=== PATIENT | male | born 1995 | race Caucasian/White ===

== ENCOUNTER 2016-10-16 11:20 | Emergency (ER) | END 2016-10-16 12:59 | disposition home or self-care (01) | DX: G51.0 Bell's palsy (principal); J45.909 Unspecified asthma, uncomplicated; Z76.0 Encounter for issue of repeat prescription ==

== ENCOUNTER 2017-01-05 11:24 | Emergency (ER) | payer MEDICAID ==
[~2017-01-05] VITALS: Ht 157.5 cm; Wt 90.0 kg
[~2017-01-05 11:24] MED LIST: ACYC400T2 PO; ALBU8.5H3 INH; NAPR-260 PO; PRED20TA PO
[2017-01-05 11:30] VITALS: Ht 157.5 cm; Wt 90.0 kg
[2017-01-05] MEDS ORDERED: IPRATROPIUM (NEB) 0.5 MG/2.5 ML AMP INH STA (12:16)
[2017-01-05] MEDS ORDERED: ALBUTEROL 0.5% (NEB) 2.5 MG/0.5 ML AMP INH STA (12:16)
[2017-01-05] MEDS ORDERED: METHYLPREDNISOLONE 125 MG INJ IM ONE (12:30)
--- NOTE | 2017-01-05 14:21 | RADRPT ---
PROCEDURE: Chest x-ray CLINICAL INDICATION: Asthma exacerbation TECHNIQUE: Chest single view COMPARISON: None FINDINGS: The heart is normal in size. The pulmonary vessels are normal in caliber. The lungs are clear. Th e costophrenic angles are sharp. The visualized bony thorax is unremarkable. IMPRESSION: No acute cardiopulmonary disease. RPTAT: HH .Jan Alejandro MD, Date Time Electronically viewed and signed by .Jan Alejandro MD, MD on 01/05/2017 14:21 .W/
--- NOTE | 2017-01-05 14:33 | ERD ---
ER Documentation Chief Complaint Date/Time DATE: 01/05/17 Chief Complaint Asthma exacerbation HPI The patient is a 21-year-old male with a history of asthma who presents to the Emergency Department with complaint of asthma exacerbation. The patient reports that over the past four days he has been experiencing a flare of his asthma. He notes that this often occurs with changes in the temperature, which has been occurring. He has noted increased wheezing over the past several days, particularly at night. The patient has increased his ProAir HFA usage, though does not feel that it is resolving his symptoms. He reports mild nasal congestion and shortness of breath at this time. Otherwise, denies cough, ear pain, sore throat, neck pain, neck stiffness or new rashes. Denies fevers, sweats, chills. Denies chest pain or palpitations. Denies recent travel, lower extremity edema, calf swelling/tenderness. Denies any sick contacts with similar symptoms. ROS All systems reviewed and are negative except as per history of present illness. Medications Home Meds Active Scripts Albuterol Sulfate* (Proair HFA*) 8.5 Gm Hfa.aer.ad, 2 PUFF INH Q4, #1 INHALER Prov:BLAIRE ECHOLS PA-C 01/05/17 Prednisone* (Prednisone*) 20 Mg Tab, 60 MG PO DAILY for 5 Days, TAB Prov:BLAIRE ECHOLS PA-C 01/05/17 Albuterol Sulfate* (Proair HFA*) 8.5 Gm Hfa.aer.ad, 2 PUFF INH Q4, #1 INHALER Prov:ARABELLA STANLEY PA-C 10/16/16 Naproxen* (Naprosyn*) 500 Mg Tablet, 500 MG PO BID Y for PAIN AND/OR INFLAMMATION, #20 TAB Prov:ARABELLA STANLEY PA-C 10/16/16 Prednisone* (Prednisone*) 20 Mg Tab, 40 MG PO DAILY for 5 Days, TAB Prov:ARABELLA STANLEY PA-C 10/16/16 Acyclovir* (Acyclovir*) 400 Mg Tablet, 400 MG PO QID for 7 Days, TAB Prov:ARABELLA STANLEY PA-C 10/16/16 Allergies Allergies: Coded Allergies: No Known Allergy (Unverified , 01/05/17) PMhx/Soc Medical and Surgical Hx: pt denies Surgical Hx History of Surgery: No Anesthesia Reaction: No Hx Neurological Disorder: No Hx Respiratory Disorders: Yes (asthma) Hx Cardiac Disorders: No Hx Psychiatric Problems: No Hx Miscellaneous Medical Probl: No Hx Alcohol Use: Yes (socially) Hx Substance Use: No Hx Tobacco Use: No Smoking Status: Never smoker Physical Exam Vitals Vital Signs Date Time Temp Pulse Resp B/P Pulse Ox O2 Delivery O2 Flow Rate FiO2 01/05/17 14:47 97.9 97 16 124/78 97 Room Air 01/05/17 12:40 95 18 97 21 01/05/17 11:30 98.1 99 18 129/74 95 Physical Exam GENERAL: Well-developed, well-nourished, in no acute distress HEENT: Head is normocephalic, atraumatic. No scleral pallor or icterus. Pupils equal, round and reactive to light. Extraocular movements intact. Conjunctiva pink. Nares are patent bilaterally. Bilaterally tympanic membranes are clear with no evidence of erythema, effusion or dulling of the light reflex. Moist mucous membranes. No pharyngeal erythema or exudates. Uvula is midline. NECK: Supple. No masses, no tenderness, no lymphadenopathy. Trachea midline. No nuchal rigidity. Full range of motion. RESPIRATORY: Diffuse wheezing throughout bilateral lung obrien. Prolonged expiratory phase. No accessory muscle use. Speaking in full sentences. No stridor. No rales or rhonchi. No nasal flaring. No retractions. CARDIOVASCULAR: Regular rate and rhythm. S1 and S2 normal. EXTREMITIES: No clubbing, cyanosis, or edema. Normal skin perfusion. Full range of motion of both the upper and lower extremities bilaterally. Muscle tone is normal. No focal swelling or erythema. Distal pulses are palpable, 2+ bilaterally. Capillary refill is less than 2 seconds. No calf swelling/ tenderness. NEUROLOGIC: The patient is alert, awake, and oriented x 3. No focal neurologic deficits. INTEGUMENT: Skin is clean, dry and intact. No rashes, lesions or petechiae present. PSYCHIATRIC: Appropriate; Cooperative. Results 24 hrs Current Medications Medications (Trade) Dose Ordered Sig/Addy Route PRN Reason Start Time Stop Time Status Last Admin Dose Admin Albuterol (Proventil 0.5% (Neb)) 10 mg ONCE STAT INH 01/05/17 12:16 01/05/17 12:18 DC 01/05/17 12:36 Ipratropium [place] (Atrovent 0.02% (Neb)) 1 mg ONCE STAT INH 01/05/17 12:16 01/05/17 12:18 DC 01/05/17 12:36 Methylprednisolone Sodium Succinate (Solu-Medrol) 125 mg ONCE ONCE IM 01/05/17 12:30 01/05/17 12:31 DC 01/05/17 12:34 Procedures/MDM DIAGNOSTIC TESTS AND INTERPRETATION: PROCEDURE: Chest x-ray CLINICAL INDICATION: Asthma exacerbation TECHNIQUE: Chest single view COMPARISON: None FINDINGS:The heart is normal in size. The pulmonary vessels are normal in caliber. The lungs are clear. The costophrenic angles are sharp. The visualized bony thorax is unremarkable. IMPRESSION:No acute cardiopulmonary disease. .Jan Aleajndro MD, MD Date Time Electronically viewed and signed by .Jan Alejandro MD, MD on 01/05/2017 14:21 MEDICAL DECISION MAKING: This is a 21-year-old male presenting to the emergency department with acute asthma exacerbation. He was given albuterol 10 mg as well as Atrovent 1 mg by nebulizer treatment. Solu-Medrol 125 mg IM was also administered. After rest, a period of observation, medication and breathing treatment, the patient had resolution of his wheezing, and felt significantly better. His lungs are now clear to auscultation bilaterally, with no rales, rhonchi or wheezing. No intercostal retractions, nasal flaring, accessory muscle use or signs of respiratory distress. There is no current evidence of pneumonia, acute coronary syndrome, pulmonary embolism, acute respiratory distress syndrome, status asthmaticus, sinusitis, otitis media, otitis externa, pharyngitis, airway obstruction, anaphylaxis, pneumothorax, acute/surgical abdomen, sepsis, dehydration or meningitis. At this time, the patient is in stable condition, and no longer experiencing any wheezing or shortness of breath , and therefore can be discharged home with prescriptions for a short course of prednisone and ProAir HFA. He is advised to follow-up with his primary care provider for reevaluation and further management within 2-3 days, or return to the ER sooner for any new or worsening symptoms. I shared my medical decision making and plan with the patient at length and in great detail, and he verbally understands and agrees with the plan for further observation and care as an outpatient. At the time of discharge, all questions were answered. Departure Diagnosis: Primary Impression: Asthma with acute exacerbation Asthma severity: unspecified severity Qualified Code: J45.901 - Asthma with acute exacerbation, unspecified asthma severity Condition: Stable Patient Instructions: Asthma, Acute (Adult) Additional Instructions: Call your primary care doctor TOMORROW for an appointment during the next 2-3 days.See the doctor sooner or return here if your condition worsens before your appointment time. BLAIRE ECHOLS PA-C Jan 05, 2017 14:33
[2017-01-05] MEDS ORDERED: PRED20TA PO (14:34)
[2017-01-05] MEDS ORDERED: ALBU8.5H3 INH (14:34)
[2017-01-05 14:47] VITALS: BP 124/78; PULSE 97; RESP 16; TEMP 97.9
== END 2017-01-05 14:48 | disposition home or self-care (01) ==
LOC: FTE 11:24
DX: J45.901 Unspecified asthma with (acute) exacerbation (principal)
CPT/HCPCS: 71010; 94644; 96372; J2930; Z7502; Z7610

== ENCOUNTER 2017-07-27 16:32 | Emergency (ER) | END 2017-07-27 17:05 | disposition home or self-care (01) | DX: Z76.0 Encounter for issue of repeat prescription (principal); J45.909 Unspecified asthma, uncomplicated ==

== ENCOUNTER 2017-09-14 16:30 | Emergency (ER) | END 2017-09-14 19:15 | disposition home or self-care (01) ==

== ENCOUNTER 2017-11-05 14:00 | Emergency (ER) | END 2017-11-05 14:43 | disposition home or self-care (01) ==

== ENCOUNTER 2018-07-26 15:19 | Emergency (ER) | END 2018-07-26 16:59 | disposition home or self-care (01) ==